=== PATIENT | female | born 1995 ===

== ENCOUNTER 2018-04-06 17:22 | Emergency (ER) | payer SELFPAY ==
[2018-04-06 17:38] VITALS: BP 103/66
[2018-04-06 18:13] LABS: Hematocrit 42.1 % (30.3-42.9); Hemoglobin 13.9 gm/dl (10.1-14.3); Mean Corpuscular HGB Conc 33 % (30-34); Mean Corpuscular Hemoglobin 33 pg (28-32); Mean Corpuscular Volume 101 fl (79-97); Platelet Count 278 K/mm3 (140-440); Red Blood Count 4.18 M/mm3 (3.65-5.03); Red Cell Distribution Width 14.9 % (13.2-15.2)
[2018-04-06 18:33] LABS: Alanine Aminotransferase 16 units/L (7-56); BUN/Creatinine Ratio 20; Blood Urea Nitrogen 10 mg/dL (7-17); Calcium 9.5 mg/dL (8.4-10.2); Hemolysis Index 10; Lipase 15 units/L (13-60)
[2018-04-06 19:22] LABS: Basophils % (Manual) 0 % (0.0-1.8); Eosinophils % (Manual) 0 % (0.0-4.3); Total Cells Counted 100
[2018-04-06 19:23] LABS: Platelet Estimate Consistent w Auto; RBC Morphology Normal
[2018-04-06 20:03] LABS: Bacteria,Urine 2+ /HPF (Negative); Bilirubin,Urine NEG (Negative); Blood,Urine NEG (Negative); Color,Urine Yellow (Yellow); Mucus,Urine 3+ /HPF; Protein,Urine <15 mg/dL mg/dL (Negative); Urobilinogen,Urine < 2.0 mg/dL (<2.0)
[2018-04-06 20:13] LABS: HCG Qualitative,Urine Negative (Negative)
== END 2018-04-06 21:30 | disposition left against medical advice (07) ==
LOC: ED 17:22
DX: R11.2 Nausea with vomiting, unspecified (principal); R19.7 Diarrhea, unspecified; Z53.21 Procedure and treatment not carried out due to patient leaving prior to being seen by health care provider
CPT/HCPCS: 36415; 80053; 81001; 81025; 83690; 85007; 85025